=== PATIENT | female | born 1990 | race Caucasian/White ===

== ENCOUNTER 2016-07-28 14:41 | Emergency (ER) | payer OTHER ==
[~2016-07-28] VITALS: Ht 152.4 cm; Wt 68.5 kg
--- NOTE | 2016-07-28 15:37 | ED GI/GU/ABDOMINAL COMPLAINT ---
History of Present Illness General Chief Complaint: Abdominal Pain/Flank Pain Stated Complaint: ABDOMINAL PAIN Source: patient Exam Limitations: no limitations Vital Signs & Intake/Output Vital Signs & Intake/Output Vital Signs Date Time Temp Pulse Resp B/P Pulse O2 O2 Flow FiO2 Ox Delivery Rate 07/28 1824 97.5 88 18 125/66 97 07/28 1444 97.2 74 18 124/77 99 Room Air Triage Note: PT COMPLAINS OF LOW PELVIC PAIN FOR THE PAST COUPLE OF DAYS. STATES THAT HER PERIOD STARTED YESTERDAY. 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 DENIES VAGIANAL DISCAHRGE Triage Nurses Notes Reviewed? yes ? N Is pt currently ? No Onset: Abrupt Duration: day(s): (FEW) Timing: recent history Location: suprapubic Radiation: no radiation HPI: 25 year old female with lower abdominal pain for the past few days. Seen by PCP 2 days ago who advised ER evaluation 2 days ago. Patient began menstruating yesterday. Positive nausea. No vomiting, diarrhea. S/P antibiotic course last week for UTI. Denies hematuria, dysuria. H/O migraine headaches, takes 6 ibuprofen daily along with tylenol. No relief with ibuprofen or tylenol. Past History Travel History Traveled to [place] past 21 day No Medical History Any Pertinent Medical History? see below for history Neurological: migraine EENT: NONE Cardiovascular: NONE Respiratory: NONE Gastrointestinal: NONE Hepatic: NONE Renal: NONE Musculoskeletal: NONE Psychiatric: NONE Blood Disorders: NONE Cancer(s): NONE Surgical History Surgical History: non-contributory Psychosocial History What is your primary language Yakut Tobacco Use: Never used ETOH Use: denies use Illicit Drug Use: denies illicit drug use Family History Hx Contributory? No Review of Systems Review of Systems Constitutional: Denies: chills, fever. EENTM: Reports: no symptoms. Respiratory: Denies: cough, short of breath, sputum production. Cardiovascular: Denies: chest pain, palpitations. GI: Reports: abdominal pain, nausea. Denies: diarrhea, vomiting. Genitourinary: Reports: see HPI (VAGINAL BLEEDING). Musculoskeletal: Reports: no symptoms. Skin: Reports: no symptoms. Neurological/Psychological: Reports: no symptoms. Hematologic/Endocrine: Denies: bruising, bleeding, polyuria, polydipsia. Immunologic/Allergic: Denies: splenectomy. All Other Systems: Reviewed and Negative Physical Exam Physical Exam General Appearance: well developed/nourished, alert, awake, mild distress Head: atraumatic, normal appearance Eyes: Bilateral: normal appearance, PERRL, EOMI. Ears, Nose, Throat, Mouth: hearing grossly normal, moist mucous membrane Neck: normal inspection, supple, full range of motion Respiratory: normal breath sounds, chest non-tender, no respiratory distress Cardiovascular: regular rate/rhythm Peripheral Pulses: 2+ radial (R), 2+ radial (L) Gastrointestinal: soft, tenderness (SUPRAPUBIC) Core Measures ACS in differential dx? No Severe Sepsis Present: No Septic Shock Present: No Progress Differential Diagnosis: appendicitis, diverticulitis, intrauterine , kidney stone, ovarian cyst, ovarian torsion, PID/cervicitis, colitis Plan of Care: Orders Procedure Date/time Status LIPASE 07/28 163 Complete COMPREHENSIVE METABOLIC PANEL 07/28 163 Complete CBC WITHOUT DIFFERENTIAL 07/28 163 Complete URINE 07/28 162 Complete URINALYSIS 07/28 1620 Complete Laboratory Tests 07/28/16 1648: Anion Gap 12, Estimated GFR > 60, BUN/Creatinine Ratio 17.1, Glucose 96, Calcium 10.1, Total Bilirubin 0.3, AST 23, ALT 26, Alkaline Phosphatase 55, Total Protein 8.1, Albumin 4.8, Globulin 3.3, Albumin/Globulin Ratio 1.5, Lipase 302 H, CBC w Diff NO MAN DIFF REQ, RBC 4.42, MCV 84.2, MCH 28.1, RDW 14.6 H, MPV 8.6, Gran % 55.1, Lymphocytes % 35.1, Monocytes % 7.1, Eosinophils % 2.3, Basophils % 0.4, Absolute Granulocytes 5.4, Absolute Lymphocytes 3.4, Absolute Monocytes 0.7 H, Absolute Eosinophils 0.2, Absolute Basophils 0, PUBS MCHC 33.4 07/28/16 1638: Urine Color YEL, Urine Clarity CLEAR, Urine pH 7.5, Ur Specific [place] 1.010, Urine Protein NEG, Urine Ketones NEG, Urine Nitrite NEG, Urine Bilirubin NEG, Urine Urobilinogen 0.2, Ur Leukocyte Esterase NEG, Ur Microscopic SEDIMENT EXAMINED, Urine RBC 1-3, Urine WBC RARE, Ur Epithelial Cells RARE, Urine Bacteria RARE H, Urine Mucus RARE, Urine Hemoglobin MOD H, Urine Glucose NEG, Urine Test NEGATIVE LABS, toradol, imaging ordered. u/s negative. still with severe abdominal pain. ct scan ordered to r/o appendicitis/colitis. percocet ordered. patient improved. imaging wnl. (MIRNA PONO,REBECCA) Diagnostic Imaging: Viewed by Me: CT Scan, Ultrasound. Discussed w/RAD: CT Scan, Ultrasound. Radiology Impression: EXAM TYPE: CAT - CT ABD & PELVIS W IV CONTRAST EXAMINATION : CT ABDOMEN AND PELVIS WITH CONTRAST CLINICAL INFORMATION: 25-year-old female with severe suprapubic pain. COMPARISON: None TECHNIQUE: Multidetector volumetric imaging was performed of the abdomen and pelvis after the IV administration of 94 mL of Optiray 320 intravenous contrast. Sagittal and coronal reformatted images were obtained on the technologist's workstation. DLP: 281 mGy-cm FINDINGS: CHAIR TRIMMER: Noncontributory. LUNG BASES: The visualized lung bases are unremarkable. LIVER, GALLBLADDER, AND BILIARY TREE: Normal. PANCREAS: Unremarkable. SPLEEN: Unremarkable. ADRENAL GLANDS: Unremarkable. KIDNEYS AND URETERS: The kidneys are normal in size, shape, and attenuation. No hydronephrosis, hydroureter, or calculi seen. No perinephric stranding. Both renal pelves are extrarenal in location BLADDER: Unremarkable. GASTROINTESTINAL TRACT: The small and large bowel are unremarkable. The appendix is unremarkable. There is no evidence of free fluid or free air. ABDOMINAL WALL: No significant hernia is appreciated. LYMPH NODES: Normal. VASCULAR: Unremarkable. PELVIC VISCERA: The anteverted uterus is normal in size and shape. Tubal ligation clips are in place. No adnexal masses are seen. 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 Posteriorly, the shape suggests partial butterfly configuration. IMPRESSION: No significant abnormality., PATIENT: NOEMÍ DELANEY PRESENT AGE: 25 PATIENT ACCOUNT NO: [id number] : 88 LOCATION: [facility] ORDERING PHYSICIAN: REBECCA BRADLEY MD SERVICE DATE: 07/28/16 EXAM TYPE: US - US-TRANSVAGINAL EXAMINATION: US TRANSVAGINAL CLINICAL INFORMATION: 25-year-old patient with severe lower abdominal pain. COMPARISON: None TECHNIQUE: Transabdominal and endovaginal examination of the pelvis with grayscale and color Doppler imaging combined with pulse-wave Doppler interrogation and spectral analysis for the evaluation of ovarian blood flow. FINDINGS: The anteverted uterus is normal in size and shape measuring 8.1 x 3.7 x 4.2 cm. Cervical length is normal at 3.0 cm. Endometrial thickness is 0.7 cm corresponding to the secretory phase of menstruation. LMP 07/27/2016. Both ovaries are normal in size and echo appearance showing immature follicles. The right ovary measures 3.1 x 1.5 x 2.0 cm for a volume of 5 mL. Left ovary measures 3.3 x 2.0 x 2.0 cm for a volume of 6.7 mL. Blood flow is normal in both ovaries. There is no free fluid. IMPRESSION : Normal pelvic sonogram. DICTATED BY: HAL CHERY MD DATE/TIME DICTATED: 07/28/161718 FOOD CLERK:RAYMOND DATE/TIME TRANSCRIBED:07/28/161718 CONFIDENTIAL, DO NOT COPY WITHOUT APPROPRIATE AUTHORIZATION. <Electronically signed in Other Vendor System> SIGNED BY: HAL CHERY MD 07/28/16 1726 Initial ED EKG: none Departure Departure Time of Disposition: 1902 Disposition: HOME OR SELF CARE Condition: Stable Clinical Impression Primary Impression: Dysmenorrhea Secondary Impressions: Migraine Referrals: LAZARO BAUER MD (PCP/Family) Additional Instructions: TAKE TYLENOL NEEDED FOR PAIN. LIMIT YOUR IBUPROFEN USAGE. FOLLOW UP WITH YOUR PCP AND YOUR OBGYN DOCTOR. RETURN NEEDED. Departure Forms: Customer Survey General Discharge Information
[2016-07-28 16:53] LABS: ABSOLUTE BASOPHIL COUNT 0 /CUMM (0.0-0.2); ABSOLUTE EOSINOPHIL COUNT 0.2 /CUMM (0.0-0.7); ABSOLUTE GRANULOCYTE CT 5.4 /CUMM (1.4-6.5); ABSOLUTE LYMPH COUNT 3.4 /CUMM (1.2-3.4); ABSOLUTE MONOCYTE COUNT 0.7 /CUMM (0.10-0.60); BASOPHIL % 0.4 % (0.0-2.0); EOSINOPHIL % 2.3 % (0-5); GRANULOCYTE % 55.1 % (42.2-75.2); HEMATOCRIT 37.2 % (37-47); MEAN CORPUSCULAR HGB 28.1 PG (27.0-31.0); MEAN CORPUSCULAR HGB CONC 33.4 G/DL (33.0-37.0); MEAN CORPUSCULAR VOLUME 84.2 FL (81.0-99.0); MEAN PLATELET VOLUME 8.6 FL (7.4-10.4); PLATELET COUNT 355 /CUMM (130-400); RBC DISTRIBUTION WIDTH 14.6 % (11.5-14.5); RED BLOOD CELL CT 4.42 /CUMM (4.20-5.40); WHITE BLOOD CELL COUNT 9.7 /CUMM (4.8-10.8)
--- NOTE | 2016-07-28 17:26 | ULTRASOUND REPORT ---
EXAMINATION: US TRANSVAGINAL CLINICAL INFORMATION: 25-year-old patient with severe lower abdominal pain. COMPARISON: None TECHNIQUE: Transabdominal and endovaginal examination of the pelvis with grayscale and color Doppler imaging combined with pulse-wave Doppler interrogation and spectral analysis for the evaluation of ovarian blood flow. FINDINGS: The anteverted uterus is normal in size and shape measuring 8.1 x 3.7 x 4.2 cm. Cervical length is normal at 3.0 cm. Endometrial thickness is 0.7 cm corresponding to the secretory phase of menstruation. LMP 07/27/2016. Both ovaries are normal in size and echo appearance showing immature follicles. The right ovary measures 3.1 x 1.5 x 2.0 cm for a volume of 5 mL. Left ovary measures 3.3 x 2.0 x 2.0 cm for a volume of 6.7 mL. Blood flow is normal in both ovaries. There is no free fluid. IMPRESSION: Normal pelvic sonogram.
[2016-07-28 18:24] VITALS: BP 125/66
--- NOTE | 2016-07-28 18:34 | CT SCAN REPORT ---
EXAMINATION: CT ABDOMEN AND PELVIS WITH CONTRAST CLINICAL INFORMATION: 25-year-old female with severe suprapubic pain. COMPARISON: None TECHNIQUE: Multidetector volumetric imaging was performed of the abdomen and pelvis after the IV administration of 94 mL of Optiray 320 intravenous contrast. Sagittal and coronal reformatted images were obtained on the technologist's workstation. DLP: 281 mGy-cm FINDINGS: COMMERCIAL MANAGEMENT ACCOUNTANT: Noncontributory. LUNG BASES: The visualized lung bases are unremarkable. LIVER, GALLBLADDER, AND BILIARY TREE: Normal. PANCREAS: Unremarkable. SPLEEN: Unremarkable. ADRENAL GLANDS: Unremarkable. KIDNEYS AND URETERS: The kidneys are normal in size, shape, and attenuation. No hydronephrosis, hydroureter, or calculi seen. No perinephric stranding. Both renal pelves are extrarenal in location BLADDER: Unremarkable. GASTROINTESTINAL TRACT: The small and large bowel are unremarkable. The appendix is unremarkable. There is no evidence of free fluid or free air. ABDOMINAL WALL: No significant hernia is appreciated. LYMPH NODES: Normal. VASCULAR: Unremarkable. PELVIC VISCERA: The anteverted uterus is normal in size and shape. Tubal ligation clips are in place. No adnexal masses are seen. 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 Posteriorly, the shape suggests partial butterfly configuration. IMPRESSION: No significant abnormality.
== END 2016-07-28 19:23 ==
LOC: ERH 14:41
PROVIDERS: Emergency Medicine
DX: N94.6 Dysmenorrhea, unspecified (principal); G43.909 Migraine, unspecified, not intractable, without status migrainosus
CPT/HCPCS: 74177; 81001; 81025; J1885